=== PATIENT | female | born 1990 | race African-American/Black ===

== ENCOUNTER 2018-05-29 15:22 | Emergency (ER) | payer OTHER, SELFPAY ==
[2018-05-29] MEDS ORDERED: Sodium Chloride 0.9% 1,000 ML ONE (16:04)
[2018-05-29 16:31] LABS: Anion Gap 14 mmol/L (10-20); BUN (Urea Nitrogen) 11 mg/dL (7.0-18.7); Calc. Creatinine Clearance 0 mL/min (70-130); Calcium 9.1 mg/dL (7.8-10.44); Carbon Dioxide 20 mmol/L (22-29); Chloride 108 mmol/L (98-107); Estimated GFR-MDRD Greater than 90; Glucose 119 mg/dL (70-105); Sodium 139 mmol/L (136-145)
[2018-05-29 16:40] LABS: Hemoglobin 9.8 g/dL (12.0-16.0); Mean Corpuscular HGB CONC 32.5 g/dL (32.0-36.0); Mean Corpuscular Hemoglobin 29.1 pg (27.0-31.0); Mean Corpuscular Volume 89.5 fL (78.0-98.0); Mean Platelet Volume 6.5 fL (7.4-10.4); Platelet Count 340 thou/uL (130-400); RBC Distribution Width 13.7 % (11.5-14.5); Red Blood Cell (RBC) Count 3.36 mill/uL (4.20-5.40); White Blood Cell (WBC) Count 10.5 thou/uL (4.8-10.8)
[2018-05-29 17:25] LABS: Potassium 2.8 mmol/L (3.5-5.1)
[2018-05-29] MEDS ORDERED: Potassium Chloride 20 MEQ TAB ONE (17:30)
[2018-05-29 17:48] LABS: Band 3 % (5-11); Lymphocytes 16 % (21-51); MDiff Complete? YES; Neutrophil 81 % (42-75); PLT Morphology Comment Appears Adequate; RBC Morphology Normal
== END 2018-05-29 17:40 | disposition home or self-care (01) ==
LOC: NAV ERS 15:22
DX: O03.9 Complete or unspecified spontaneous abortion without complication (principal); D50.0 Iron deficiency anemia secondary to blood loss (chronic); E87.6 Hypokalemia
CPT/HCPCS: 80048; 84702; 85025; 96360; J7050

== ENCOUNTER 2022-10-14 07:07 | Emergency (ER) | payer OTHER ==
[2022-10-14 07:37] LABS: Bilirubin Small (Negative); Blood, Urine Large (Negative); Clarity Cloudy (Clear); Glucose, Urine (Dipstick) Negative (Negative); Ketone, Urine Negative (Negative); Leukocyte Large (Negative); Nitrite Negative (Negative); Protein, Urine (Dipstick) 100 mg/dL (Neg-Trace); pH, Urine 6.5 (5.0-9.0)
[2022-10-14 07:39] LABS: Specific Gravity, Urine 1.025 (1.002-1.036)
[2022-10-14 07:46] LABS: RBC/HPF Greater than 50 HPF (0-3); Squamous Epithelial 0-3 HPF (0-3); Transitional Epithelial None Seen HPF (None Seen)
[2022-10-14 07:47] LABS: Bacteria/HPF 1+ HPF (None Seen); Mucous/LPF Few LPF (<2+)
== END 2022-10-14 08:03 | disposition home or self-care (01) ==
LOC: NAV ERS 07:07
DX: O23.43 Unspecified infection of urinary tract in pregnancy, third trimester (principal); N39.0 Urinary tract infection, site not specified; Z3A.34 34 weeks gestation of pregnancy
CPT/HCPCS: 81003; 81015; 99283

== ENCOUNTER 2024-02-20 18:07 | Emergency (ER) | payer OTHER ==
[2024-02-20] MEDS ORDERED: Amoxicillin/Potassium Clav 875 MG TAB ONE (18:36)
== END 2024-02-20 18:52 | disposition home or self-care (01) ==
LOC: NAV ERS 18:07
DX: H65.03 Acute serous otitis media, bilateral (principal); H60.503 Unspecified acute noninfective otitis externa, bilateral
CPT/HCPCS: 99282